=== PATIENT | male | born 1945 ===

== ENCOUNTER 2018-11-04 07:12 | Outpatient (CLI) | payer MEDICARE | END 2018-11-04 07:13 | disposition home or self-care (01) | LOC: C.CARD 07:12 | DX: R06.02 Shortness of breath (principal); E78.2 Mixed hyperlipidemia; Z95.5 Presence of coronary angioplasty implant and graft ==

== ENCOUNTER 2018-12-26 06:03 | Day surgery (SDC) | payer MEDICARE ==
[2018-12-23 10:30] VITALS: BMI 30.9
[2018-12-26] MEDS ORDERED: Lactated Ringer's 1,000 ML IV ONE (08:16)
--- NOTE | 2018-12-26 08:18 | CP.SDSHP ---
Same Day Surgery H & P - History Proposed Procedure: EGD Pre-Op Diagnosis: Dysphagia - Previous Medical/Surgical History Cardiac: ASHD/CAD, Other Comments: HOCM, Sleep apnea Previous Surgical History: Cholecystectomy, AICD - Allergies Allergies: Allergies No Known Allergies Allergy (Verified 10/31/15 13:28) - Current Medications Current Medications: See reconciliation sheet. - Physical Exam General Appearance: WD WN male in NAD Vital Signs: Vital Signs 12/26/18 06:50 Temperature 97.9 F Pulse Rate 80 Respiratory 20 Rate Blood Pressure 108/59 L O2 Sat by Pulse 98 Oximetry Mental Status: Alert & Oriented x3 Neuro: WNL Heart: WNL Lungs: WNL GI: WNL - Impression Impression: Dysphagia Pt. Evaluated Today:Candidate for Anesthesia & Procedure: Yes - Date & Time Date: 12/26/18 Time: 08:18 Short Stay Discharge - Short Stay Discharge Admitting Diagnosis/Reason for Visit: DYSPHAGIA Disposition: HOME/ ROUTINE Referrals: Niurka Juarez MD [Primary Care Provider] -
[2018-12-26] MEDS ORDERED: Midazolam 2 MG/2 ML VIAL ONE (08:20)
[2018-12-26] MEDS ORDERED: Lidocaine 4% (Laryng-O-Jet) Kit MM ONE (08:25)
[2018-12-26 09:09] VITALS: TEMP 97.8; O2SAT 97
[2018-12-26 09:37] VITALS: PULSE 81
[2018-12-26 09:38] VITALS: BP 112/73; RESP 12
== END 2018-12-26 10:06 | disposition home or self-care (01) ==
LOC: C.ENDO 06:03
PROVIDERS: ATTEND Internal Medicine Gastroenterology
DX: R13.10 Dysphagia, unspecified (principal); K29.70 Gastritis, unspecified, without bleeding; I25.10 Atherosclerotic heart disease of native coronary artery without angina pectoris; G47.30 Sleep apnea, unspecified; Z95.810 Presence of automatic (implantable) cardiac defibrillator
CPT/HCPCS: 43239; 88104; 88305; 88312; 88313; 88342; J2250; J3010; J7120

== ENCOUNTER 2019-01-13 11:58 | Outpatient (CLI) | payer MEDICARE | END 2019-01-13 11:59 | disposition home or self-care (01) | LOC: C.CTH 11:58 ==

== ENCOUNTER → 2019-01-24 | Outpatient (CLI) | payer MEDICARE | LOC: C.RADH 09:57 ==